=== PATIENT | male | born 1975 | race African-American/Black ===

== ENCOUNTER 2024-10-18 16:52 | Emergency (ER) | payer SELFPAY ==
[2024-10-18 18:17] LABS: Absolute Basophils 0.1 K/uL (0-0.5); Absolute Eosinophils 0.1 K/uL (0-0.5); Absolute Lymphocytes (CBC) 1.6 K/uL (0.7-4.9); Absolute Monocytes 0.6 K/uL (0.1-1.3); Absolute Neutrophil 5.4 K/uL (1.8-8.0); Basophils % 0.7 % (0-1.3); Eosinophils % 0.7 % (0-4.4); Hematocrit 46.1 % (39.6-49.0); Hemoglobin 14.8 g/dL (13.6-17.9); Lymphocytes % 20.2 % (15.3-44.8); MCH 29.3 pg (27.0-35.0); MCV 91.6 fL (80-100); MPV 8.3 fL (7.6-11.3); Monocytes % 8.2 % (3.3-12.3); Neutrophils % 70.2 % (41.7-73.7); Nucleated Red Blood Cells % 0.3 % (0-0); Platelets 242 thou/uL (152-406); RBC Red Blood Cell Count 5.04 M/uL (4.33-5.43); Red Cell Distribution Width 13.5 % (12.1-15.2)
[2024-10-18] MEDS ORDERED: ONDANSETRON 4 MG/2 ML VIAL ONE (18:18)
[2024-10-18] MEDS ORDERED: NA CHLORIDE 0.9% 1,000 ML ONE ×2 (18:19→20:04)
[2024-10-18] MEDS ORDERED: KETOROLAC 30 MG/ML INJ ONE (18:19)
--- NOTE | 2024-10-18 18:20 | RAD REPORT ---
Procedure: Chest Single View HISTORY: Chest pain COMPARISON: none FINDINGS: The lungs appear clear of acute infiltrate. No significant pleural effusion noted. The heart is normal size. IMPRESSION: No acute abnormality is displayed.
[2024-10-18 18:31] LABS: ALT/SGPT 20 U/L (16-61); AST/SGOT 35 U/L (15-37); Albumin 3.7 g/dL (3.4-5.0); Albumin/Globulin Ratio 0.9 (1.1-1.8); Alkaline Phosphatase 68 U/L (45-117); Anion Gap 9.7 mEq/L (5.0-15.0); BUN Blood Urea Nitrogen 6 mg/dL (7-18); Bicarbonate 24 mEq/L (21-32); Bilirubin Direct < 0.2 mg/dL (0-0.2); Bilirubin Indirect, Calculated 0.8 mg/dL (0.2-0.8); Globulin 4.3 g/dL (2.3-3.5); Glomerular Filtration Rate 83 ml/min (=/>90); Glucose Level 101 mg/dL (74-106); Lipase 34 U/L (13-75); Magnesium 2.2 mg/dL (1.6-2.4); Potassium 5.7 mEq/L (3.5-5.1); Sodium Level 133 mEq/L (136-145); Troponin High Sensitivity 3.5 pg/mL (<58.9)
--- NOTE | 2024-10-18 19:05 | RAD REPORT ---
EXAMINATION: CT ABDOMEN AND PELVIS WITH CONTRAST CLINICAL INDICATION: Abdominal pain TECHNIQUE: CT abdomen and pelvis was performed, after the administration of 100 cc Isovue-300.. Sagit daly and coronal reconstructions were obtained. One or more of the following dose reduction techniques were used: Automated exposure control, adjustment of the mA and kV according to patient si ze, and iterative reconstruction. Unless otherwise specified, incidental findings do not require dedicated imaging follow-up. [id number]. Oral contrast was not given which limits evaluation of bowel and appendix. COMPARISON: none FINDINGS: Liver, spleen, pancreas, and adrenals appear unremarkable Multiple, small bilateral renal calculi. No hydronephrosis. No evidence of diverticulitis. Normal appendix. Small right inguinal hernia contains fat : IMPRESSION: Multiple, bilateral nonobstructing renal calculi
[2024-10-18 19:55] LABS: Sqamous Epithelial <5 /HPF (None Seen); Urine Bacteria None Seen /HPF (<20); Urine Bilirubin NEGATIVE (Negative); Urine Blood Negative (Negative); Urine Clarity Clear (Clear); Urine Color Light-Yellow (Yellow); Urine Culture Reflex Order NOT NEEDED; Urine Glucose NEGATIVE (Negative); Urine Ketones 1+ (Negative); Urine Microscopic Reflex YN ORDER UMIC; Urine Mucus Slight /HPF (None Seen); Urine Nitrite NEGATIVE (Negative); Urine Protein 1+ (Negative); Urine Urobilinogen Normal (Normal); Urine WBC <5 /HPF (<5); Urine WBC Clump Rare /HPF (None Seen); Urine Yeast (Budding) Trace /HPF (None Seen); Urine pH 8.5 (5.0-7.0)
[2024-10-18 20:12] LABS: Specific Gravity > 1.030 (1.005-1.030)
[2024-10-18 20:25] LABS: Barbiturates NEGATIVE (NEGATIVE); Benzodiazepines NEGATIVE (NEGATIVE); Cocaine NEGATIVE (NEGATIVE); METHAMPHETAM NEGATIVE (NEGATIVE); Methadone NEGATIVE (NEGATIVE); Opiates NEGATIVE (NEGATIVE); Phencyclidine NEGATIVE (NEGATIVE); THC Cannibis POSITIVE (NEGATIVE)
[2024-10-18 22:28] LABS: Troponin High Sensitivity 4.1 pg/mL (<58.9)
--- NOTE | 2024-10-18 22:40 | EDPHYS ---
Physician Documentation [facility] Name: Joaquin Sharma III Age: 48 yrs Sex: Male : 1975 Arrival Date: 10/18/2024 Time: 16:52 Bed 10 Private MD: ED Physician Carl Escobar HPI: 10/18 17:40 This 48 yrs old Black Male presents to ER via EMS with complaints of Vomiting - cp Substance withdrawal, Decreased Appetite. 17:40 The patient presents to the emergency department with nausea, that is moderate, cp vomiting, that is intermittent, abdominal pain, of the abdomen diffusely. 17:40 Possible causes: reports last use of meth was about 2 days ago. cp 17:40 Associated signs and symptoms: Pertinent negatives: constipation, fever, GI bleeding. cp Severity of symptoms: in the emergency department the symptoms are unchanged despite home interventions. Historical: - Allergies: 17:10 No Known Allergies; ss - Immunization history:: Adult Immunizations unknown. - Infectious Disease History:: Denies. - Social history:: Patient uses street drugs. ROS: 17:45 Constitutional: Positive for poor PO intake, Negative for body aches, chills, fever, cp 17:45 Cardiovascular: Positive for chest pain, cp 17:45 Abdomen/GI: Positive for abdominal pain, nausea and vomiting, 17:45 Eyes: Negative for injury, pain, redness, and discharge, cp 17:45 ENT: Negative for drainage from ear(s), ear pain, sore throat, difficulty swallowing, difficulty handling secretions, 17:45 Respiratory: Negative for cough, shortness of breath, wheezing, 17:45 : Negative for urinary symptoms, 17:45 Neuro: Negative for altered mental status, 17:45 All other systems are negative, Exam: 17:50 Constitutional: The patient appears in no acute distress, alert, awake, cp non-diaphoretic, non-toxic, well developed, well nourished, uncomfortable, 17:50 Head/Face: Normocephalic, atraumatic. cp 17:50 Eyes: Periorbital structures: appear normal, Pupils: equal, round, and reactive to light and accomodation, Extraocular movements: intact throughout, Conjunctiva: normal, no exudate, no injection, Sclera: no appreciated abnormality, Lids and lashes: appear normal, bilaterally, 17:50 ENT: External ear(s): are unremarkable, Nose: is normal, Mouth: Lips: moist, Oral mucosa: pink and intact, moist, Posterior pharynx: Airway: no evidence of obstruction, patent, 17:50 Neck: ROM/movement: is normal, is supple, without pain, no range of motions limitations, 17:50 Chest/axilla: Inspection: normal, Palpation: is normal, no crepitus, no tenderness, 17:50 Cardiovascular: Rate: normal, Rhythm: regular, 17:50 Respiratory: the patient does not display signs of respiratory distress, Respirations: normal, no use of accessory muscles, no retractions, labored breathing, is not present, Breath sounds: are clear throughout, no decreased breath sounds, no stridor, no wheezing, 17:50 Abdomen/GI: Inspection: abdomen appears normal, Bowel sounds: active, all quadrants, Palpation: moderate abdominal tenderness, in all quadrants, rebound tenderness, is not appreciated, 17:50 Neuro: Orientation: to person, place \T\ time. Mentation: is normal, Motor: moves all fours, strength is normal, 18:07 ECG was reviewed by the Attending Physician. Vital Signs: 17:08 BP 152 / 116; Pulse 75; Resp 18; Temp 98.2; Pulse Ox 100% on R/A; Weight 95.25 kg; ss 18:27 BP 149 / 98; Pulse 55; Resp 16; Pulse Ox 100% on R/A; ss 20:16 BP 133 / 71; Pulse 57; Resp 16; Pulse Ox 100% on R/A; jb4 23:02 BP 123 / 64; Pulse 88; Resp 14; Pulse Ox 100% ; vc1 MDM: 17:18 Medical Screening Exam initiated cp 18:00 Differential diagnosis: gastritis, pancreatitis, appendicitis, viral gastroenteritis, cp gastroenteritis. 22:38 Data reviewed: vital signs, nurses notes, lab test result(s), radiologic studies, CT cp scan, plain films, and as a result, I will discharge patient. 22:38 I considered the following discharge prescriptions or medication management in the emergency department Medications were administered in the Emergency Department. See MAR. Independent interpretation of the following test(s) in the Emergency Department EKG: See my EKG interpretation above. Counseling: I had a detailed discussion with the patient and/or guardian regarding the historical points, exam findings, and any diagnostic results supporting the discharge/admit diagnosis, lab results, radiology results, to return to the emergency department if symptoms worsen or persist or if there are any questions or concerns that arise at home. Response to treatment: the patient's symptoms have markedly improved after treatment, and as a result, I will discharge patient. Special discussion: Based on the patient's Hx, exam, and Dx evaluation, there is no indication for emergent surgery or inpatient Tx. It is understood by the patient/guardian that if the Sx's persist or worsen they need to return immediately for re-evaluation. 10/18 17:36 Order name: Basic Metabolic Panel; Complete Time: 19:59 cp 10/18 20:00 Interpretation: Normal except: NA 133; K 5.7; BUN 6; GFR 83. cp 10/18 17:36 Order name: CBC with Diff; Complete Time: 19:59 cp 10/18 17:36 Order name: LFT's; Complete Time: 19:59 cp 10/18 17:36 Order name: Magnesium; Complete Time: 19:59 cp 10/18 17:36 Order name: Troponin HS; Complete Time: 19:59 cp 10/18 17:36 Order name: Lipase; Complete Time: 19:59 cp 10/18 17:36 Order name: UDS; Complete Time: 21:49 cp 10/18 21:50 Interpretation: Normal except: THC POSITIVE. cp 10/18 17:36 Order name: Urinalysis w/ reflexes; Complete Time: 21:49 cp 10/18 20:11 Order name: Potassium; Complete Time: 22:34 cp 10/18 22:34 Interpretation: K 4.0; Reviewed. cp 10/18 20:11 Order name: Troponin High Sensitivity; Complete Time: 22:34 cp 10/18 17:36 Order name: XRAY Chest (1 view); Complete Time: 19:59 cp 10/18 18:12 Order name: CT Abd/Pelvis - IV Contrast Only; Complete Time: 19:59 cp 10/18 17:36 Order name: EKG; Complete Time: 17:36 cp 10/18 17:36 Order name: Cardiac monitoring; Complete Time: 18:27 cp 10/18 17:36 Order name: EKG - Nurse/Tech; Complete Time: 18:01 cp 10/18 17:36 Order name: IV Saline Lock; Complete Time: 18:01 cp 10/18 17:36 Order name: Labs collected and sent; Complete Time: 18:01 cp 10/18 17:36 Order name: O2 Per Protocol; Complete Time: 18:01 cp 10/18 17:36 Order name: O2 Sat Monitoring; Complete Time: 18:01 cp 10/18 21:50 Order name: PO challenge; Complete Time: 22:04 cp EC:07 Rate is 54 beats/min. Rhythm is regular. KS interval is normal. QRS interval is normal. cp QT interval is normal. T waves are Inverted in leads aVL, aVR. Interpreted by me. Reviewed by me. Administered Medications: 18:24 Drug: Ondansetron IVP 4 mg IVP once; over 2 minutes Route: IVP; Site: left antecubital; ss 19:00 Follow up: Response: No adverse reaction; Marked relief of symptoms; Nausea is decreasedvc1 18:26 Drug: Ketorolac IVP 15 mg IVP once Route: IVP; Site: left antecubital; ss 19:00 Follow up: Response: No adverse reaction; Marked relief of symptoms; Pain is decreased vc1 18:27 Drug: NS 0.9% IV 1000 ml IV at 1000 ml once; to be given as a bolus over 60 minutes ss Route: IV; Rate: 1000 ml; Site: left antecubital; 19:30 Follow up: IV Status: Completed infusion; IV Intake: 1000ml vc1 20:11 Drug: NS 0.9% IV 1000 ml IV at 1000 ml once; to be given as a bolus over 60 minutes jb4 Route: IV; Rate: 1000 ml; Site: left antecubital; 21:11 Follow up: IV Status: Completed infusion; IV Intake: 1000ml vc1 Disposition Summary: 10/18/24 22:39 Discharge Ordered Notes: Location: Home cp Problem: new cp Symptoms: have improved cp Condition: Stable cp Diagnosis - Nausea with vomiting, unspecified cp - Adverse effect of other psychotropic drugs cp - Abdominal pain, unspecified cp Followup: cp - With: Private Physician - When: 2 - 3 days - Reason: Recheck today's complaints Discharge Instructions: - Discharge Summary Sheet cp - Abdominal Pain, Adult cp - Nausea and Vomiting, Adult cp Forms: - Medication Reconciliation Form cp - Antibiotic Education cp - Prescription Opioid Use cp - Patient Portal Instructions cp - Leadership Thank You Letter cp Prescriptions: - Pepcid 20 mg Oral Tablet - take 1 tablet ORAL route every 12 hours for 5 days; 10 tablet; Refills: 0, cp Product Selection Permitted - ondansetron 8 mg Oral Tablet,disintegrating - take 1 tablet ORAL route every 12 hours; 10 tablet; Refills: 0, Product cp Selection Permitted Signatures: Dispatcher [employer] Shantel Benitez RN RN ss Cecil Jung PA PA cp Bryson, James, RN RN jb4 Joyce Novak RN vc1
--- NOTE | 2024-10-18 22:40 | ER ---
Nurse's Notes [facility] Name: Joaquin Sharma III Age: 48 yrs Sex: Male : 1975 Arrival Date: 10/18/2024 Time: 16:52 Bed 10 Private MD: Diagnosis: Nausea with vomiting, unspecified;Adverse effect of other psychotropic drugs;Abdominal pain, unspecified Presentation: 10/18 17:08 Chief complaint: EMS states: Patient presents in the ED c/o nausea and vomiting for the ss past 2 days. EMS states, " Patient states that he hasn't used meth in over 2 days". Coronavirus screen: Client denies travel out of the [place] in the last 14 days. At this time, the client does not indicate any symptoms associated with coronavirus-19. Ebola Screen: No symptoms or risks identified at this time. Initial Sepsis Screen: Does the patient meet any 2 criteria? No. Patient's initial sepsis screen is negative. Does the patient have a suspected source of infection? No. Patient's initial sepsis screen is negative. Risk Assessment: Do you want to hurt yourself or someone else? Patient reports no desire to harm self or others. Onset of symptoms was October 16, 2024. 17:08 Method Of Arrival: EMS: [facility] ss 17:08 Acuity: YOLANDA 3 ss Historical: - Allergies: 17:10 No Known Allergies; ss - Immunization history:: Adult Immunizations unknown. - Infectious Disease History:: Denies. - Social history:: Patient uses street drugs. Screenin:27 Abuse screen: Denies threats or abuse. Denies injuries from another. Nutritional ss screening: No deficits noted. Tuberculosis screening: Never had TB. 22:00 [facility] ED Fall Risk Assessment (Adult) History of falling in the last 3 months, vc1 including since admission No falls in past 3 months (0 pts) Confusion or Disorientation Yes (5 pts) Intoxicated or Sedated No (0 pts) Impaired Gait No (0 pts) Mobility Assist Device Used No (0 pt) Altered Elimination No (0 pt) Score/Fall Risk Level 3 or more points = High Risk Oriented to surroundings, Maintained a safe environment, Educated pt \\T\\ family on fall prevention, incl call for assistance when getting out of bed. Assessment: 18:27 General: Appears uncomfortable, Behavior is restless, Reports feeling ill for 1-2 days, ss Pt states that he quit meth, "cold turkey" two days ago and believes he is "detoxing" . Pain: Complains of pain in abdomen Pain currently is 9 out of 10 on a pain scale. Is continuous. Neuro: Level of Consciousness is awake, alert, obeys commands, Oriented to person, place, time, situation. Respiratory: Airway is patent Respiratory effort is even, unlabored, Respiratory pattern is regular, symmetrical. GI: Abdomen is non-distended. EENT: Nares are clear Oral mucosa is moist. Derm: Skin is intact, is healthy with good turgor, Skin is dry, Skin is pink, warm \\T\\ dry. normal. 20:16 Reassessment: Patient appears in no apparent distress at this time. Patient and/or jb4 family updated on plan of care and expected duration. Pain level reassessed. Patient is alert, oriented x 3, equal unlabored respirations, skin warm/dry/pink. 21:00 Reassessment: Patient appears in no apparent distress at this time. Patient and/or jb4 family updated on plan of care and expected duration. Pain level reassessed. Patient is alert, oriented x 3, equal unlabored respirations, skin warm/dry/pink. 22:07 Reassessment: Patient appears in no apparent distress at this time. Patient and/or jb4 family updated on plan of care and expected duration. Pain level reassessed. Patient is alert, oriented x 3, equal unlabored respirations, skin warm/dry/pink. report given to PAULA Cook. Vital Signs: 17:08 BP 152 / 116; Pulse 75; Resp 18; Temp 98.2; Pulse Ox 100% on R/A; Weight 95.25 kg; ss 18:27 BP 149 / 98; Pulse 55; Resp 16; Pulse Ox 100% on R/A; ss 20:16 BP 133 / 71; Pulse 57; Resp 16; Pulse Ox 100% on R/A; jb4 23:02 BP 123 / 64; Pulse 88; Resp 14; Pulse Ox 100% ; vc1 ED Course: 16:57 Patient arrived in ED. ra3 17:07 Cecil Jung PA is PHCP. cp 17:07 Carl Escobar MD is Attending Physician. cp 17:10 Triage completed. ss 18:01 Shantel Oviedo, RN is Primary Nurse. ss 18:03 Lipase Sent. em1 18:03 Basic Metabolic Panel Sent. em1 18:03 CBC with Diff Sent. em1 18:03 LFT's Sent. em1 18:03 Magnesium Sent. em1 18:03 Troponin HS Sent. em1 18:03 Initial lab(s) drawn, by ky, sent to lab. Inserted saline lock: 22 gauge in left em1 antecubital area, using aseptic technique. Blood collected. Flushed with 10 mL NS. 18:08 XRAY Chest (1 view) In Process Unspecified. EDMS 18:27 Patient has correct armband on for positive identification. Bed in low position. Call ss light in reach. 18:57 CT Abd/Pelvis - IV Contrast Only In Process Unspecified. EDMS 23:03 No provider procedures requiring assistance completed. IV discontinued, intact, vc1 bleeding controlled, No redness/swelling at site. Pressure dressing applied. Administered Medications: 18:24 Drug: Ondansetron IVP 4 mg IVP once; over 2 minutes Route: IVP; Site: left antecubital; 19:00 Follow up: Response: No adverse reaction; Marked relief of symptoms; Nausea is decreasedvc1 18:26 Drug: Ketorolac IVP 15 mg IVP once Route: IVP; Site: left antecubital; ss 19:00 Follow up: Response: No adverse reaction; Marked relief of symptoms; Pain is decreased vc1 18:27 Drug: NS 0.9% IV 1000 ml IV at 1000 ml once; to be given as a bolus over 60 minutes ss Route: IV; Rate: 1000 ml; Site: left antecubital; 19:30 Follow up: IV Status: Completed infusion; IV Intake: 1000ml vc1 20:11 Drug: NS 0.9% IV 1000 ml IV at 1000 ml once; to be given as a bolus over 60 minutes jb4 Route: IV; Rate: 1000 ml; Site: left antecubital; 21:11 Follow up: IV Status: Completed infusion; IV Intake: 1000ml vc1 Medication: 18:27 VIS not applicable for this client. ss Intake: 19:30 IV: 1000ml; Total: 1000ml. vc1 21:11 IV: 1000ml; Total: 2000ml. vc1 Outcome: 22:39 Discharge ordered by MD. smith 23:03 Discharged to home via wheelchair, F/U WITH PCP IF SYMPTOMS PERSIST vc1 23:03 Condition: good 23:04 Discharge instructions given to patient, Instructed on discharge instructions, follow vc1 up and referral plans. Demonstrated understanding of instructions, follow-up care, medications, Prescriptions given X 2, 23:05 Patient left the ED. vc1 Signatures: Dispatcher [employer] EDMS Henry Llamas em1 Shantel Oviedo RN RN ss Cecil Jung PA PA cp Bryson, James RN RN jb4 Joyce Novak RN RN vc1 Hortencia Awan ra3 Corrections: (The following items were deleted from the chart) 23:07 21:00 IV Intake: 1000ml vc1 vc1
[2024-10-19 03:07] VITALS: TEMP 98.2; O2SAT 100
[2024-10-19 03:10] VITALS: BP 123/64
--- NOTE | 2024-10-21 12:03 | EKG ---
Test Date: 2024-10-18 Test Time: 18:00:37 Community Director: LEXII MEASUREMENT RESULTS: Intervals: Rate: 54 SD: 168 QRSD: 88 QT: 412 QTc: 390 [place]: P: 62 SD: 168 QRS: 76 T: 66 INTERPRETIVE STATEMENTS: Sinus bradycardia with sinus arrhythmia Otherwise normal ECG No previous ECG available for comparison Electronically Signed On 10-21-24 12:01:18 [employer] by Roshan Garcia
== END 2024-10-18 23:05 | disposition home or self-care (01) ==
LOC: ER 16:52
DX: R11.2 Nausea with vomiting, unspecified (principal); T43.8X5A Adverse effect of other psychotropic drugs, initial encounter; R10.9 Unspecified abdominal pain; R07.9 Chest pain, unspecified
CPT/HCPCS: 36415; 71045; 74177; 80048; 80076; 80307; 81001; 83690; 83735; 84132; 84484; 85025; 93005; 96361; 96374; 96375; 99284; J2405; J7030; Q9967

== ENCOUNTER 2025-07-02 08:03 | Emergency (ER) | payer SELFPAY ==
[2025-07-02 08:34] LABS: Absolute Lymphocytes (CBC) 1.6 K/uL (0.7-4.9); Hematocrit 39.2 % (39.6-49.0); Hemoglobin 12.8 g/dL (13.6-17.9); MCH 29.7 pg (27.0-35.0); MCHC 32.7 g/dL (32.0-36.0); MCV 90.6 fL (80-100); MPV 8.5 fL (7.6-11.3); Nucleated RBC Absolute Count 0.0 (0-0); Nucleated Red Blood Cells % 0.0 % (0-0); RBC Red Blood Cell Count 4.32 M/uL (4.33-5.43); White Blood Count 6.80 thou/uL (4.3-10.9)
[2025-07-02] MEDS ORDERED: KETOROLAC 30 MG/ML INJ ONE (09:02)
[2025-07-02 09:34] LABS: Anion Gap 7.8 mEq/L (5.0-15.0); BUN Blood Urea Nitrogen 13.0 mg/dL (7-18); Glucose Level 91.0 mg/dL (74-106); Potassium 3.8 mEq/L (3.5-5.1); Troponin High Sensitivity 4.8 pg/mL (<58.9)
--- NOTE | 2025-07-02 09:40 | ER ---
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 Coronavirus screen: Vaccine status: Patient reports being unvaccinated. Ebola Screen: No symptoms or risks identified at this time. Initial Sepsis Screen: Does the patient meet any 2 criteria? No. Patient's initial sepsis screen is negative. Does the patient have a suspected source of infection? No. Patient's initial sepsis screen is negative. Risk Assessment: Do you want to hurt yourself or someone else? Patient reports no desire to harm self or others. Onset of symptoms was July 02, 2025. 08:05 Method Of Arrival: EMS: [facility] 08:05 Acuity: YOLANDA 3 ph Triage Assessment: 08:08 General: Appears in no apparent distress. Behavior is calm, cooperative. Pain: ph Complains of pain in chest. Neuro: Level of Consciousness is awake, alert, obeys commands, Oriented to person, place, time, situation. Cardiovascular: Reports chest pain. Respiratory: Airway is patent Respiratory effort is even, unlabored. GI: No signs and/or symptoms were reported involving the gastrointestinal system. Derm: Skin is pink, warm \T\ dry. Historical: - Allergies: 08:07 No Known Allergies; ph - PMHx: 08:07 Seizure; Asthma; ph - Immunization history:: Adult Immunizations unknown. - Infectious Disease History:: Denies. - Social history:: Smoking status: Patient denies any tobacco usage or history of. Patient/guardian denies using alcohol, street drugs. Screenin: [facility] ED Fall Risk Assessment (Adult) History of falling in the last 3 months, ph including since admission No falls in past 3 months (0 pts) Confusion or Disorientation No (0 pts) Intoxicated or Sedated No (0 pts) Impaired Gait No (0 pts) Mobility Assist Device Used No (0 pt) Altered Elimination No (0 pt) Score/Fall Risk Level 0 - 2 = Low Risk Oriented to surroundings, Maintained a safe environment, Hourly rounding (assess needs \T\ fall precautionary measures) done. Abuse screen: Denies threats or abuse. Denies injuries from another. Nutritional screening: No deficits noted. Tuberculosis screening: No symptoms or risk factors identified. Assessment: 08:28 General: SEE TRIAGE ASSESSMENT. ph Vital Signs: 08:05 BP 135 / 97; Pulse 93; Resp 18; Temp 97.6; Pulse Ox 97% on R/A; ph 09:09 BP 150 / 95; Pulse 79; Resp 14; Pulse Ox 97% on R/A; ph Vitals: 09:09 Cardiac Rhythm Assessment Sinus rhythm. ph ED Course: 08:04 Patient arrived in ED. sp3 08:04 Nestor Verdugo MD is Attending Physician. sp3 08:05 Maria Teresa Miller, RN is Primary Nurse. ph 08:07 Triage completed. ph 08:08 Arm band placed on Patient placed in an exam room, in a wheelchair, on pulse oximetry. ph 08:19 EKG done, by process technician. ts3 08:28 Initial lab(s) drawn, by id, sent to lab. Inserted saline lock: 22 gauge in right ph antecubital area, using aseptic technique. Blood collected. Flushed with 10 mL NS. Patient maintains SpO2 saturation greater than 95% on room air. 08:29 Patient has correct armband on for positive identification. Bed in low position. Side ph rails up X2. monitoring analyst on. Pulse ox on. NIBP on. Officer at bedside. 08:29 Basic Metabolic Panel Sent. ph 08:29 CBC with Diff Sent. ph 08:29 Troponin HS Sent. ph 08:54 XRAY Chest (1 view) In Process Unspecified. EDMS 09:40 Gerardo Alan MD is Referral Physician. sp3 09:47 No provider procedures requiring assistance completed. IV discontinued, intact, ph bleeding controlled, No redness/swelling at site. Pressure dressing applied. Administered Medications: 09:08 Drug: Ketorolac IVP 15 mg IVP once Route: IVP; Site: right antecubital; ph 09:47 Follow up: Response: No adverse reaction ph Medication: 08:29 VIS not applicable for this client. ph Outcome: 09:40 Discharge ordered by sp3 09:47 Discharged to Law Enforcement ph 09:47 Condition: good 09:47 Discharge instructions given to patient, Instructed on discharge instructions, follow up and referral plans. Demonstrated understanding of instructions, follow-up care, 09:48 Patient left the ED. ph Signatures: Dispatcher [employer] Maria Teresa Torres RN RN ph Patel, Setul, MD MD sp3 Rowena Capps 3
--- NOTE | 2025-07-02 09:40 | EDPHYS ---
Physician Documentation [facility] Name: Joaquin Sharma III Age: 49 yrs Sex: Male : 1975 Arrival Date: 07/02/2025 Time: 08:03 Bed 4 Private MD: ED Physician Nestor Verdugo HPI: 07/02 08:07 This 49 yrs old Black Male presents to ER via Unassigned with complaints of Chest Pain. sp3 08:11 49-year-old male with history of seizures, asthma presents to the ED with chief sp3 complaint chest pain that started off and on since yesterday. Patient is in police custody when his pain recurred and they activated EMS to bring him here for evaluation. Patient with normal sinus rhythm with normal EKG for EMS. Vital signs have been stable and normal. Patient denies headache, fever, trauma, back pain, shortness of breath, abdominal pain, vomiting, diarrhea, syncope, or any other signs or symptoms on ROS at this time.. Historical: - Allergies: 08:07 No Known Allergies; ph - PMHx: 08:07 Seizure; Asthma; ph - Immunization history:: Adult Immunizations unknown. - Infectious Disease History:: Denies. - Social history:: Smoking status: Patient denies any tobacco usage or history of. Patient/guardian denies using alcohol, street drugs. ROS: 08:12 Constitutional: Negative for fever, chills, and weight loss, Eyes: Negative for injury, sp3 pain, redness, and discharge, ENT: Negative for injury, pain, and discharge, Neck: Negative for injury, pain, and swelling, Respiratory: Negative for shortness of breath, cough, wheezing, and pleuritic chest pain, Abdomen/GI: Negative for abdominal pain, nausea, vomiting, diarrhea, and constipation, Back: Negative for injury and pain, MS/Extremity: Negative for injury and deformity, Skin: Negative for injury, rash, and discoloration, Neuro: Negative for headache, weakness, numbness, tingling, and seizure, 08:12 All other systems are negative, Exam: 08:12 Constitutional: This is a well developed, well nourished patient who is awake, alert, sp3 and in no acute distress. Head/Face: Normocephalic, atraumatic. Eyes: Pupils equal round and reactive to light, extra-ocular motions intact. Lids and lashes normal. Conjunctiva and sclera are non-icteric and not injected. Cornea within normal limits. Periorbital areas with no swelling, redness, or edema. Neck: Trachea midline, no thyromegaly or masses palpated, and no cervical lymphadenopathy. Supple, full range of motion without nuchal rigidity, or vertebral point tenderness. No Meningismus. Chest/axilla: Normal chest wall appearance and motion. Nontender with no deformity. No lesions are appreciated. Cardiovascular: Regular rate and rhythm with a normal S1 and S2. No gallops, murmurs, or rubs. Normal PMI, no JVD. No pulse deficits. Respiratory: Lungs have equal breath sounds bilaterally, clear to auscultation and percussion. No rales, rhonchi or wheezes noted. No increased work of breathing, no retractions or nasal flaring. Abdomen/GI: Soft, non-tender, with normal bowel sounds. No distension or tympany. No guarding or rebound. No evidence of tenderness throughout. Back: No spinal tenderness. No costovertebral tenderness. Full range of motion. Skin: Warm, dry with normal turgor. Normal color with no rashes, no lesions, and no evidence of cellulitis. MS/ Extremity: Pulses equal, no cyanosis. Neurovascular intact. Full, normal range of motion. Neuro: Awake and alert, GCS 15, oriented to person, place, time, and situation. Cranial nerves II-XII grossly intact. Motor strength 5/5 in all extremities. Sensory grossly intact. Cerebellar exam normal. Normal gait. Psych: Awake, alert, with orientation to person, place and time. Behavior, mood, and affect are within normal limits. 08:29 ECG was reviewed by the Attending Physician. EKG demonstrates normal sinus rhythm at 90 sp3 bpm with normal intervals, normal QRS, normal axis, normal axis ST segments without evidence of acute ischemia. Normal EKG. Vital Signs: 08:05 BP 135 / 97; Pulse 93; Resp 18; Temp 97.6; Pulse Ox 97% on R/A; ph 09:09 BP 150 / 95; Pulse 79; Resp 14; Pulse Ox 97% on R/A; ph MDM: 08:04 Medical Screening Exam initiated sp3 08:12 Data reviewed: vital signs, nurses notes, EMS record, old medical records, lab test sp3 result(s), EKG, radiologic studies. ED course: 49-year-old male with chest pain while in police custody. Symptoms present not his typical acute coronary syndrome presentation. Pains been going on since yesterday and 1 negative troponin should rule patient out. Patient has a normal EKG. Chest x-ray also pending. If workup negative we will safely discharge patient to police custody with follow-up to cardiology whenever possible.. 07/02 08:05 Order name: Basic Metabolic Panel; Complete Time: 09:37 sp3 08 08:05 Order name: CBC with Diff; Complete Time: 08:38 sp3 07/02 08:05 Order name: Troponin HS; Complete Time: 09:37 sp3 07/02 08:05 Order name: XRAY Chest (1 view) sp3 07/02 08:05 Order name: EKG - Nurse/Tech; Complete Time: 08:19 sp3 07/02 08:05 Order name: Labs collected and sent; Complete Time: 08:29 sp3 07/02 08:38 Order name: Labs - recollect needed: recollect green top; Complete Time: 08:46 bd 08 08:56 Order name: Labs - recollect needed: recollect green top again; Complete Time: 09:08 bd Administered Medications: 09:08 Drug: Ketorolac IVP 15 mg IVP once Route: IVP; Site: right antecubital; ph 09:47 Follow up: Response: No adverse reaction ph Disposition Summary: 07/02/25 09:40 Discharge Ordered Notes: Location: Home sp3 Condition: Stable sp3 Diagnosis - Chest pain, unspecified sp3 Followup: sp3 - With: Gerardo Alan MD - When: - Reason: Recheck today's complaints Discharge Instructions: - Discharge Summary Sheet sp3 - Nonspecific Chest Pain, Adult sp3 Forms: - Medication Reconciliation Form sp3 - Antibiotic Education sp3 - Prescription Opioid Use sp3 - Patient Portal Instructions sp3 - Leadership Thank You Letter sp3 Signatures: Dispatcher [employer] EDSaima Mars Patricia, RN RN ph Nestor Verdugo MD MD sp3 Corrections: (The following items were deleted from the chart) 08:05 08:05 BASIC METABOLIC PANEL+C.LAB.BRZ ordered. EDMS EDMS 08:05 08:05 CBC+H.LAB.BRZ ordered. EDMS EDMS 08:05 08:05 Troponin High Sensitivity+C.LAB.BRZ ordered. EDMS EDMS 08:05 08:05 Chest Single View+RAD.RAD.BRZ ordered. EDMS EDMS
[2025-07-02 09:53] VITALS: TEMP 97.6; O2SAT 97
[2025-07-02 09:54] VITALS: BP 150/95
--- NOTE | 2025-07-02 09:55 | RAD REPORT ---
EXAMINATION: ONE VIEW CHEST XR CLINICAL INDICATION: Male, 49 years old.,CHEST PAIN TECHNIQUE: Frontal chest projection is submitted. Examination is limited by patient positioning and t echnique. COMPARISON: 10/18/2024 FINDINGS: The lungs are well inflated and clear. No pneumothorax or sizable effusion. The heart is normal in s ize. Mediastinal contours are unremarkable. IMPRESSION: No acute intrathoracic abnormalities.
== END 2025-07-02 09:48 | disposition home or self-care (01) ==
LOC: ER 08:03
DX: R07.9 Chest pain, unspecified (principal); J45.909 Unspecified asthma, uncomplicated
CPT/HCPCS: 36415; 71045; 80048; 84484; 85025; 93005; 96374; 99285

== ENCOUNTER 2025-09-19 01:40 | Emergency (ER) | payer SELFPAY ==
[2025-09-19] MEDS ORDERED: PHENYTOIN ER 100 MG CAP PO ONE (02:14)
[2025-09-19 03:07] LABS: Absolute Lymphocytes (CBC) 2.2 K/uL (0.7-4.9); Hematocrit 37.7 % (39.6-49.0); Hemoglobin 12.4 g/dL (13.6-17.9); MCH 29.4 pg (27.0-35.0); MCHC 33.0 g/dL (32.0-36.0); MCV 89.1 fL (80-100); MPV 8.9 fL (7.6-11.3); Nucleated RBC Absolute Count 0.0 (0-0); Nucleated Red Blood Cells % 0.0 % (0-0); RBC Red Blood Cell Count 4.23 M/uL (4.33-5.43); White Blood Count 7.20 thou/uL (4.3-10.9)
[2025-09-19 03:14] LABS: PT Prothrombin Time 12.2 SECONDS (10-13.0); PTT, Activated Partial Thromb 31.3 SECONDS (27.2-37.4); Protime INR 1.08
[2025-09-19 03:27] LABS: ALT/SGPT 23 U/L (16-61); AST/SGOT 31 U/L (15-37); Albumin 3.5 g/dL (3.4-5.0); Albumin/Globulin Ratio 0.9 (1.1-1.8); Alkaline Phosphatase 75 U/L (45-117); Anion Gap 11.3 mEq/L (5.0-15.0); BUN Blood Urea Nitrogen 16 mg/dL (7-18); Bilirubin Indirect, Calculated 0.7 mg/dL (0.2-0.8); Globulin 4.1 g/dL (2.3-3.5); Glucose Level 122 mg/dL (74-106); Potassium 3.3 mEq/L (3.5-5.1)
--- NOTE | 2025-09-19 03:52 | ER ---
Nurse's Notes [facility] Name: Joaquin Sharma III Age: 49 yrs Sex: Male : 1975 Arrival Date: 09/19/2025 Time: 01:40 Bed 16 Private MD: Diagnosis: Suicidal ideations;Auditory hallucinations Presentation: 09/19 01:58 Chief complaint: Patient states: with here with SI w/o a plan, pt feeling hopeless at kt5 this time. Coronavirus screen: Vaccine status: Patient reports receiving the 2nd dose of the covid vaccine. Client denies travel out of the [place] in the last 14 days. Ebola Screen: No symptoms or risks identified at this time. Initial Sepsis Screen: Does the patient meet any 2 criteria? No. Patient's initial sepsis screen is negative. Does the patient have a suspected source of infection? No. Patient's initial sepsis screen is negative. Risk Assessment: Do you want to hurt yourself or someone else? Patient reports desire/thoughts of hurting themselves or someone else. Provider notified. 01:58 Method Of Arrival: EMS kt5 01:58 Acuity: YOLANDA 2 kt5 Triage Assessment: 02:00 General: Appears in no apparent distress. comfortable, Behavior is calm, cooperative, kt5 flat. Pain: Denies pain. EENT: No deficits noted. No signs and/or symptoms were reported regarding the EENT system. Neuro: No deficits noted. Level of Consciousness is awake, alert, obeys commands, Oriented to person, place, time, situation. Cardiovascular: No deficits noted. Denies chest pain, Heart tones S1 S2 present Capillary refill < 3 seconds Clubbing of nail beds is absent JVD is absent. Respiratory: No deficits noted. Airway is patent Trachea midline Respiratory effort is even, unlabored, Respiratory pattern is regular, symmetrical. GI: No deficits noted. No signs and/or symptoms were reported involving the gastrointestinal system. Abdomen is round non-distended. : No deficits noted. No signs and/or symptoms were reported regarding the genitourinary system. Derm: No deficits noted. No signs and/or symptoms reported regarding the dermatologic system. Skin is intact, is healthy with good turgor, Skin is dry, Skin is pink, warm \\T\\ dry. Musculoskeletal: No deficits noted. No signs and/or symptoms reported regarding the musculoskeletal system. Historical: - Allergies: 07:30 No Known Allergies; ar8 - PMHx: 02:00 Asthma; Seizure; kt5 - Immunization history:: Adult Immunizations up to date, Client reports receiving the 2nd dose of the Covid vaccine, Last tetanus immunization: unknown, Pneumococcal vaccine is not up to date. - Infectious Disease History:: Denies. - Social history:: Smoking status: Patient/guardian denies using tobacco, Patient/guardian denies using alcohol, street drugs. Screenin:00 [facility] ED Fall Risk Assessment (Adult) History of falling in the last 3 months, kt5 including since admission No falls in past 3 months (0 pts) Confusion or Disorientation No (0 pts) Intoxicated or Sedated No (0 pts) Impaired Gait No (0 pts) Mobility Assist Device Used No (0 pt) Altered Elimination No (0 pt) Score/Fall Risk Level 0 - 2 = Low Risk Oriented to surroundings, Maintained a safe environment. Abuse screen: Denies threats or abuse. Abuse screen: Denies threats or abuse. Nutritional screening: No deficits noted. Tuberculosis screening: No symptoms or risk factors identified. Assessment: 02:03 General: SEE TRIAGE NOTE. kt5 02:22 General: sitter at bs talking to pt about the process, pt is unsure of what he wants to kt do due to "trust issues". 03:26 Reassessment: Patient appears in no apparent distress at this time. Patient and/or kt5 family updated on plan of care and expected duration. Pain level reassessed. Patient is alert, oriented x 3, equal unlabored respirations, skin warm/dry/pink. pt resting comfortable at this time, will cont to monitor, waiting dispo, sitter at bs Patient denies pain at this time. 03:39 General: security at bs to pharmacy picking tech belongings. kt5 04:41 Reassessment: Patient appears in no apparent distress at this time. No changes from kt5 previously documented assessment. pt sleeping, easily arosable, nad, will monitor, sitter at bs. 05:37 Reassessment: Patient appears in no apparent distress at this time. No changes from kt5 previously documented assessment. sitter at bs. 06:40 Reassessment: Patient appears in no apparent distress at this time. No changes from kt5 previously documented assessment. pt sleeping, easily arousable, nad, will cont to monitor, sitter at bs. 07:07 General: report given to staff assistant, all questions answered. kt5 07:15 Reassessment: Patient resting quietly, easily aroused by verbal stimuli. Patient has no ar8 complaints at this time. Patient states he wants to but denies any plan of self harm. Psych: 02:03 [place] Suicide Severity Screening: In the past month, have you wished you were kt5 or wished you could go to sleep and not wake up? Patient responds "yes." Based off the client's responses additional C-SSRS screening is required. "In the past month, have you actually had any thoughts of killing yourself?" Patient responds "no." "In your lifetime, have you ever done anything, started to do anything, or prepared to do anything to end your life?" Patient responds "yes." Patient reports suicidal intent occurred greater than 3 months prior. Subjective: Patient's mood is hopeless, Delusions are denied, Hallucinations are auditory, visual, Having thoughts of suicide. Denies suicidal plan. Objective: Patient is cooperative, Speech is normal, Affect is flat. Safety Checks: Personal items have been removed. Door is open. SITTER AT BS. Pt denies substance abuse. Commitment: Patient will be a voluntary commitment. Vital Signs: 01:58 BP 137 / 93; Pulse 97; Resp 18; Temp 98.6; Pulse Ox 98% ; Weight 131.54 kg; Height 5 kt5 ft. 11 in. ; Pain 0/10; 06:14 BP 125 / 86; Pulse 88; Resp 16; Pulse Ox 100% on R/A; rv1 01:58 Body Mass Index 40.45 (131.54 kg, 180.34 cm) kt5 01:58 Pain Scale: Adult kt5 ED Course: 01:50 Patient arrived in ED. tt7 01:50 Kevin Frank DO is Attending Physician. tt7 01:58 Ana Davis, PAULA is Primary Nurse. kt5 02:00 Triage completed. kt5 02:00 Arm band placed on right wrist. kt5 02:00 Patient has correct armband on for positive identification. Bed in low position. Call kt5 light in reach. Side rails up X 1. Noise minimized. Lights dimmed. Warm blanket given. Pillow given. Patient is placed in psych hold. 02:00 No provider procedures requiring assistance completed. kt5 02:50 Inserted saline lock: 18 gauge in right antecubital area, using aseptic technique. kt5 Blood collected. Flushed with 10 mL NS. 02:57 Acetaminophen Sent. kt5 02:57 Basic Metabolic Panel Sent. kt5 02:57 CBC with Diff Sent. kt5 02:57 ETOH Level Sent. kt5 02:57 Hepatic Function Sent. kt5 02:57 PT-INR Sent. kt5 02:57 Ptt, Activated Sent. kt5 02:57 Salicylate Sent. kt5 02:57 Urine Drug Screen Sent. kt5 02:57 Dilantin Sent. kt5 04:13 Contacted [facility] for Evaluation, screening pending UDS. Will call back with results.rv1 06:23 Safety checks: Items removed: Door open/sign placed on door: Sitter present:. rv1 08:00 Pt visited by [facility] pharmaceutical sales representative at bedside speaking with patient. ar8 Administered Medications: 02:22 Drug: Phenytoin Sodium Extended PO 300 mg PO once; q12h Route: PO; kt5 04:17 Follow up: Response: No adverse reaction kt5 Medication: 03:27 VIS not applicable for this client. kt5 Outcome: 03:51 ER care complete, transfer ordered by . tt7 09:52 Patient left the ED. eb Signatures: Yvette Mills Rebecca rv1 Koffi Tejeda RN RN ar8 Ana Davis RN RN kt5 Kevin Frank DO DO tt7 Corrections: (The following items were deleted from the chart) 02:06 01:58 Chief complaint: Patient states: with here with SI kt5 kt5
--- NOTE | 2025-09-19 03:52 | EDPHYS ---
Physician Documentation [facility] Name: Joaquin Sharma III Age: 49 yrs Sex: Male : 1975 Arrival Date: 09/19/2025 Time: 01:40 Bed 16 Private MD: ED Physician Kevin Frank HPI: 09/19 02:00 This 49 yrs old Black Male presents to ER via EMS with complaints of suicidal ideations.tt7 02:00 Patient presents voluntarily with depression and suicidal ideations that have been tt7 gradually worsening since being released from assisted on Monday. He states that he is on probation and has been having problems with his nursing officer. He reports thoughts of suicide but no definitive plan. He states he has been hearing voices which tell him to "act out". Also reports nonspecific visual hallucinations. Patient reports history of depression and schizophrenia. Was previously taking Haldol and Zoloft. He also reports a history of seizures for which she takes Dilantin 300 mg twice daily. He denies homicidal ideations. Historical: - Allergies: 07:30 No Known Allergies; ar8 - PMHx: 02:00 Asthma; Seizure; kt5 - Immunization history:: Adult Immunizations up to date, Client reports receiving the 2nd dose of the Covid vaccine, Last tetanus immunization: unknown, Pneumococcal vaccine is not up to date. - Infectious Disease History:: Denies. - Social history:: Smoking status: Patient/guardian denies using tobacco, Patient/guardian denies using alcohol, street drugs. ROS: 02:02 Constitutional: negative for fever. Cardiovascular: negative for chest pain. tt7 Respiratory: negative for shortness of breath. Abdomen/GI: negative for abdominal pain, nausea, vomiting, diarrhea. MS/Extremity: negative for injury and deformity. Skin: negative for rash. Neuro: negative for focal weakness. 02:02 Psych: Positive for depression, auditory hallucinations, visual hallucinations, suicidal ideation, Exam: 02:02 Constitutional: Constitutional: vital signs reviewed, well appearing Head: tt7 normocephalic Eyes: no conjunctival injection, anicteric sclerae ENMT: mucus membranes moist Neck: trachea midline, no JVD Respiratory: normal respiratory effort, no accessory muscle use, no audible wheezing Cardiovascular: Regular rate and rhythm, no lower extremity edema Abdomen: nondistended MSK: normal ROM of extremities, no gross deformities Skin: warm, dry, intact Neuro: alert and oriented with appropriate mental status, normal speech, follows commands, no focal neurologic deficits Psych: Depressed mood, flat affect Vital Signs: 01:58 BP 137 / 93; Pulse 97; Resp 18; Temp 98.6; Pulse Ox 98% ; Weight 131.54 kg; Height 5 kt5 ft. 11 in. ; Pain 0/10; 06:14 BP 125 / 86; Pulse 88; Resp 16; Pulse Ox 100% on R/A; rv1 01:58 Body Mass Index 40.45 (131.54 kg, 180.34 cm) kt5 01:58 Pain Scale: Adult kt5 MDM: 01:50 Medical Screening Exam initiated tt7 02:03 Differential Diagnosis Depression, suicidal ideation, psychosis, schizophrenia, drug tt7 intoxication, alcohol intoxication. Data reviewed: vital signs, nurses notes, lab test result(s), EKG. ED course: Patient presents for psychiatric assessment, vital signs are stable, physical exam is reassuring, standard psychiatric/toxicology workup initiated. On my assessment patient is moderate risk for suicide so once patient fully assessed and stabilized, will plan to transfer for inpatient psychiatric treatment. 03:29 ED course: I independently interpreted the patient's EKG performed on 09/19/2025 at tt7 [id number]. On my interpretation, EKG demonstrates normal sinus rhythm, ventricular rate 96 bpm, normal axis, normal QRS interval, normal ST segments, no STEMI. 03:51 ED course: Medical workup reassuring, patient stable for psychiatric placement. tt7 06:53 ED course: Patient care signed out to Dr. Verdguo at shift change at 0700 pending tt7 psychiatric placement. 09/19 01:50 Order name: Acetaminophen; Complete Time: 03:09/19 01:50 Order name: Basic Metabolic Panel; Complete Time: 03: tt09/19 01:50 Order name: CBC with Diff; Complete Time: : tt09/19 01:50 Order name: ETOH Level; Complete Time: 03: tt09/19 01:50 Order name: Hepatic Function; Complete Time: 03: tt7 09/19 01:50 Order name: PT-INR; Complete Time: 03:09/19 01:50 Order name: Ptt, Activated; Complete Time: 03: tt7 09/19 01:50 Order name: Salicylate; Complete Time: 03:50 tt7 09/19 01:50 Order name: Urine Drug Screen; Complete Time: 04:39 tt7 09/19 01:59 Order name: Dilantin; Complete Time: 03:29 tt7 09/19 01:50 Order name: EKG - Nurse/Tech; Complete Time: 03:11 tt7 09/19 01:50 Order name: IV Saline Lock; Complete Time: 02:56 tt7 09/19 01:50 Order name: Labs collected and sent; Complete Time: 02:57 tt7 09/19 01:50 Order name: Suicide Precautions; Complete Time: 02:57 tt7 09/19 01:50 Order name: Suicide Screening ([place]); Complete Time: 02:57 tt7 Administered Medications: 02:22 Drug: Phenytoin Sodium Extended PO 300 mg PO once; q12h Route: PO; kt5 04:17 Follow up: Response: No adverse reaction kt5 Disposition: 19:09 Co-signature as Attending Physician, Kevin Frank DO. tt7 Disposition Summary: 09/19/25 03:51 Transfer Ordered Notes: Transfer Location: Psych Facility tt7 Reason: Specialty tt7 Condition: Stable tt7 Problem: an acute exacerbation tt7 Symptoms: have worsened tt7 Accepting Physician: Psych(09/19/25 09:52) eb Diagnosis - Suicidal ideations tt7 - Auditory hallucinations tt7 Forms: - Medication Reconciliation Form tt7 - SBAR form tt7 Signatures: Dispatcher [employer] EDYvette Montelongo Andrea RN RN ar8 Ana Davis RN RN kt5 Kevin Frank DO DO tt7 Corrections: (The following items were deleted from the chart) 01:51 01:50 ACETAMINOPHEN+C.LAB.BRZ ordered. EDMS EDMS 01:51 01:50 BASIC METABOLIC PANEL+C.LAB.BRZ ordered. EDMS EDMS 01:51 01:50 CBC+H.LAB.BRZ ordered. EDMS EDMS 01:51 01:50 ETHANOL+C.LAB.BRZ ordered. EDMS EDMS 01:51 01:50 HEPATIC FUNCTION+C.LAB.BRZ ordered. EDMS EDMS 01:51 01:50 PROTIME (+INR)+COAG.LAB.BRZ ordered. EDMS EDMS 01:51 01:50 PTT, ACTIVATED+COAG.LAB.BRZ ordered. EDMS EDMS 01:51 01:50 SALICYLATE+C.LAB.BRZ ordered. EDMS EDMS 01:51 01:50 URINE DRUG SCREEN+UC.LAB.BRZ ordered. EDMS EDMS 09:52 03:51 Psych tt7 eb
[2025-09-19 04:37] LABS: METHAMPHETAM POSITIVE (NEGATIVE); THC Cannibis POSITIVE (NEGATIVE)
[2025-09-19 10:01] VITALS: TEMP 98.6
[2025-09-19 10:11] VITALS: BP 125/86; O2SAT 100
== END 2025-09-19 09:52 ==
LOC: ER 01:40
DX: R45.851 Suicidal ideations (principal); R44.0 Auditory hallucinations
CPT/HCPCS: 36415; 80048; 80076; 80143; 80179; 80185; 80307; 82077; 85025; 85610; 85730; 93005; 99285